=== PATIENT | female | born 1955 | race Caucasian/White ===

== ENCOUNTER 2018-10-09 10:02 | Outpatient (CLI) | payer OTHER ==
[~2018-10-09] VITALS: Ht 162.6 cm; Wt 89.4 kg
[~2018-10-09 10:02] MED LIST: AMLO1CAP3; ATOR10TA87 PO; ESTR0.3T10 PO; IBUP-1984 PO
[2018-10-09 10:30] LABS: TOTAL HEMOGLOBIN 14.9 G/dl (12.0-16.0)
== END 2018-10-09 23:59 | disposition home or self-care (01) ==
LOC: RT 10:02
PROVIDERS: ATTEND Internal Medicine Pulmonary Disease
DX: J45.991 Cough variant asthma (principal)
CPT/HCPCS: 85018; 94010; 94727; 94729